=== PATIENT | male | born 1940 | race Caucasian/White ===

== ENCOUNTER 2022-05-20 00:51 | Inpatient (IN) | payer MEDICARE, OTHER ==
[2022-05-20] MEDS ORDERED: Dextrose 5% in Water 1,000 ML IV ONE (14:00)
[2022-05-20] MEDS ORDERED: Desmopressin 4 MCG/1 ML Amp IV ONE (14:30)
[2022-05-20] MEDS ORDERED: Sodium Chloride 0.9% 500 ML IV ONE (23:30)
[2022-05-21] MEDS ORDERED: Atenolol 50 MG Tab PO ONE (09:00)
[2022-05-21] MEDS ORDERED: Sodium Chloride 0.9% 1,000 ML IV ONE (15:20)
[2022-05-21] MEDS ORDERED: Vancomycin 1 GM SDV ONE (15:22)
[2022-05-22] MEDS ORDERED: Sodium Chloride 0.9% 1,000 ML IV ONE ×2 (00:05→11:40)
[2022-05-22] MEDS ORDERED: Atenolol 50 MG Tab ONE (09:32)
[2022-05-22] MEDS ORDERED: Spironolactone 25 MG Tab ONE (16:44)
[2022-05-22] MEDS ORDERED: Spironolactone 25 MG Tab PO ONE (16:50)
[2022-05-22] MEDS ORDERED: Sodium Chloride 1 GM Tab ONE (20:07)
[2022-05-23] MEDS ORDERED: Spironolactone 25 MG Tab ONE (08:47)
[2022-05-23] MEDS ORDERED: Sodium Chloride 1 GM Tab ONE ×2 (08:47→21:06)
[2022-05-23] MEDS ORDERED: Atenolol 50 MG Tab ONE (08:48)
[2022-05-23] MEDS ORDERED: Spironolactone 25 MG Tab PO ONE (09:00)
[2022-05-23] MEDS ORDERED: Atenolol 50 MG Tab PO ONE (09:00)
[2022-05-23] MEDS ORDERED: hydrALAZINE 20 MG/ML SDV IVPUSH ONE (21:28)
[2022-05-24] MEDS ORDERED: Spironolactone 25 MG Tab PO ONE (08:31)
[2022-05-24] MEDS ORDERED: Atenolol 50 MG Tab PO ONE (08:31)
[2022-06-05 22:14] LABS: BLOOD UREA NITROGEN,BUN 10 mg/dL (7.0-18.0); CARBON DIOXIDE,CO2 24.3 mmol/L (21.0-32.0); CHLORIDE,CL 86 mmol/L (98-107); ESTIMATED GFR 96 mL/min (>60); GLUCOSE RANDOM 116 mg/dL (74-106); POTASSIUM,K 3.8 mmol/L (3.5-5.1); SODIUM,NA 117 mmol/L (136-148)
[2022-06-24 15:26] LABS: CHLORIDE,CL 88 mmol/L (98-107); POTASSIUM,K 3.8 mmol/L (3.5-5.1); SODIUM,NA 120 mmol/L (136-148)
[2022-06-24 15:27] LABS: BLOOD UREA NITROGEN,BUN 9 mg/dL (7.0-18.0); CARBON DIOXIDE,CO2 25.5 mmol/L (21.0-32.0); ESTIMATED GFR 91 mL/min (>60); GLUCOSE RANDOM 102 mg/dL (74-106)
== END 2022-05-24 13:00 | disposition home or self-care (01) | DRG 641 ==
LOC: MW.ICU 00:51 → MW.ZCENSUS 13:46
PROVIDERS: ADMIT Internal Medicine; ATTEND Internal Medicine
DX: E87.1 Hypo-osmolality and hyponatremia (principal); N40.0 Benign prostatic hyperplasia without lower urinary tract symptoms; I11.0 Hypertensive heart disease with heart failure; I50.9 Heart failure, unspecified
CPT/HCPCS: 36415; 74018; 74018-26; 80048; 80053; 84295; 85025; 99221; 99232; 99238; A9270-GY; J0360; J2597; J7030; J7060; U0002